=== PATIENT | female | born 1960 | race Caucasian/White ===

== ENCOUNTER 2022-06-12 16:19 | Emergency (ER) | payer OTHER, SELFPAY ==
[2022-06-12 16:30] VITALS: BP 169/87; PULSE 79; RESP 20; TEMP 36.4; O2SAT 100
--- NOTE | 2022-06-12 18:30 | ED.EYEPROB ---
HPI - Eye Problem General Chief complaint: Eye Problems Stated complaint: left eye and side of face Time Seen by Provider: 06/12/22 18:30 Source: patient, RN notes reviewed and old records reviewed Mode of arrival: ambulatory Limitations: no limitations History of Present Illness HPI Narrative: 61-year-old female presents to [facility] with complaints of left eye redness matting with increased watering since yesterday also with reported swelling to left eye and cheek.Patient reports that she has has yellowish discharge noted from her left eye with eye matted shut this morning. Patient states that eye is irritated but denies any sharp pain, reports that vision in left eye is a little blurry with noted redness to conjunctiva and sclera. MD chief complaint: eye redness and other (swelling left eye and cheek) Onset (ago): day(s) (since yesterday) Eye Symptoms: redness, discharge, blurry vision and other (swelling left eye) Treatments Prior to Arrival: none Related Data Home Medications Medication Instructions Recorded Confirmed amlodipine 5 mg tablet 5 mg PO DAILY 06/12/22 06/12/22 losartan 100 1 tablet PO DAILY 06/12/22 06/12/22 mg-hydrochlorothiazide 12.5 mg tablet tramadol 50 mg tablet 50 mg PO DAILY PRN Pain (Scale 06/12/22 06/12/22 Score 1-3) triazolam 0.25 mg tablet 0.25 mg PO PRN PRN Sleep 06/12/22 06/12/22 Allergies Allergy/AdvReac Type Severity Reaction Status Date / Time No Known Allergies Allergy Verified 06/12/22 17:27 Review of Systems Review of Systems: CONSTITUTIONAL: Denies fever, chills, or sweats. EYES: Reports that vision is blurry left eye. Reports redness,, irritation, discharge to left eye, swelling of eyelid and cheek. ENT: Denies rhinorrhea, congestion, sore throat, or otalgia. CARDIOVASCULAR: Denies chest pain, palpitations, or edema. RESPIRATORY: Denies cough or dyspnea. SKIN: Denies rash or itching. NEUROLOGIC: Denies headache All systems reviewed & are unremarkable except as noted in HPI and below PMFSH Past Medical History Medical History (Updated 06/18/22 @ 07:41 by Elaine Putnam NP) Hypertension Surgical History Surgical History (Updated 06/17/22 @ 22:27 by Elaine Putnam NP) H/O neck surgery X2 Hx of cholecystectomy Social History Social History (Updated 06/18/22 @ 07:35 by Elaine Putnam NP) Smoking status: Never smoker Alcohol intake: unknown Substance use type: does not use Living arrangements: with family Gender identity (if verbalized by the patient): Female Comments At time of signature, agree with nursing past medical, surgical, social and family history. There is no relevant family history pertinent to the presenting complaint Exam Narrative: GENERAL: Well-appearing, well-nourished, and in no acute distress. HEAD: Normocephalic, atraumatic. EYES: PERRLA and EOMI. Upper and lower eyelids left eye with minimal swelling and to left cheek with no warmth or redness.. No periorbital cellulitis noted. Sclera and conjunctivae injected left eye, no sharp pain. ENT: Nares clear, no rhinorrhea or epistaxis. Mucous membranes moist. NECK: Supple. CHEST: Clear to auscultation. No respiratory distress. HEART: Regular rate and rhythm. No murmur heard. Normal peripheral pulses. SKIN: Warm, dry, no rash. NEURO: No focal deficits. Alert and oriented x3. Course Course Emergency Course: Patient is aware of diagnosis, understands and agrees to treatment plan. Anticipatory guidance given. Patient agrees to follow-up as directed and is aware of reasons to seek care at the emergency department. Portions of this record may have been created with voice recognition software Level of Care: Express Care Visit Vital Signs Vital signs: Vital Signs Temperature 36.4 C 06/12/22 16:30 Pulse Rate 79 06/12/22 16:30 Respiratory Rate 20 06/12/22 16:30 Blood Pressure 169/87 H 06/12/22 16:30 Pulse Oximetry 100 06/12/22 16:30 Oxygen Delivery
== END 2022-06-12 18:54 | disposition home or self-care (01) ==
PROVIDERS: Emergency Provider Registered Nurse; PCP Internal Medicine
DX: H10.9 Unspecified conjunctivitis (principal)
CPT/HCPCS: 99213; G0463